=== PATIENT | male | born 1980 | race Caucasian/White ===

== ENCOUNTER 2020-06-06 23:17 | Emergency (ER) | payer SELFPAY ==
[~2020-06-06] VITALS: Ht 172.7 cm; Wt 72.5 kg
--- NOTE | 2020-06-07 00:09 | ED Upper Extremity ---
General Chief Complaint: Upper Extremity Stated Complaint: L HAND 3RD FINGER INJ History of Present Illness Date Seen by Provider: Jun 06, 2020 Time Seen by Provider: 23:48 Initial Comments Patient is a 40 [id number] who presents to the emergency department with the chief complaint of injury to the third digit of his left hand. He is mostly Citizen Of The [place]-speaking and has brought a friend who is here to help translate. He states he was washing a car when he fell on his finger about 2 hours ago. He placed it in a homemade splint 30 minutes after. He denies any pain or open wounds. Denies previous trauma or injury anywhere else. He does admit to having 3-4 beers before the incident. All other review of systems reviewed and negative except as stated above. Onset: this evening Severity: mild (denies pain.) Pain/Injury Location: left 3rd finger Method of Injury: fell (MICHAEL VALENTIN STUDENT) Allergies and Home Medications Patient Home Medication List Home Medication List Reviewed: Yes (CASSIDY SCHWARTZ MD) Review of Systems Constitutional: see HPI; No chills, No fever Respiratory: No cough Cardiovascular: No chest pain Gastrointestinal: No abdominal pain, No nausea, No vomiting Musculoskeletal: see HPI; No joint pain; joint swelling; No muscle pain (MICHAEL VALENTIN STUDENT) All Other Systems Reviewed Negative Unless Noted: Yes (MICHAEL VALENTIN STUDENT) Physical Exam Vital Signs Vital Signs - First Documented 06/06/20 23:32 Temp 36.8 Pulse 87 Resp 20 B/P (MAP) 120/87 (98) Pulse Ox 99 O2 Delivery Room Air (CASSIDY SCHWARTZ MD) Vital Signs Capillary Refill : (MICHAEL VALENTIN STUDENT) Height, Weight, BMI Height: '" Weight: lbs. oz. kg; BMI Method: General Appearance: WD/WN, no apparent distress Elbow/Forearm: normal inspection, non-tender, no evidence of injury Wrist: Yes normal inspection, Yes non-tender, Yes no evidence of injury Hand: non-tender, normal ROM, Left (3rd digit of left hand, slightly in flexed position, deformity and swelling present, no open wounds, no bony tenderness to palpation, sensation intact of distal finger, capillary refill < 2 seconds), deformity (deformity around 3rd PIP of left hand), swelling (swelling around PIP on 3rd digit of left hand) Neurologic/Tendon: normal sensation Neurologic/Psychiatric: alert, normal mood/affect, oriented x 3 Skin: normal color, warm/dry (MICHAEL VALENTIN MED STUDENT) Progress/Results/Core Measures Results/Orders My Orders Orders - CASSIDY SCHWARTZ MD Finger(S) (06/06/20 23:44) (CASSIDY SCHWARTZ MD) Vital Signs/I&O (CASSIDY SCHWARTZ MD) Progress Progress Note : Time: 00:19 Progress Note 40yo male with an angulated/oblique fracture to the proximal phalanx of the left third finger. distal neurovascularly intact. splinted in the ED. advised tylenol and ibuprofen. follow up with Ortho. (CASSIDY SCHWARTZ MD) Departure Impression Primary Impression: Finger fracture, left Qualified Codes: S62.613A - Displaced fracture of proximal phalanx of left middle finger, initial encounter for closed fracture Disposition: HOME, SELF-CARE Condition: Stable Departure-Patient Inst. Decision time for Depature: 00:17 (CASSIDY SCHWARTZ MD) Referrals: NO,LOCAL PHYSICIAN (PCP) Primary Care Physician ARSEN ALTAMIRANO MD Patient Instructions: Finger Fracture Add. Discharge Instructions: keep the splint on until you follow up with the Orthopedic doctor. Call Dr Altamirano's office tomorrow for a followup appointment. Come back to the Emergency Department if you have worse pain or swelling or any other emergent concerning symptoms. . I was present for the entirety of the medical students examination and assessment. I agree with her documentation and plan of care. I performed a history and physical examination. I performed the medical decision making regarding this patient. (CASSIDY SCHWARTZ MD) Copy Copies To 1: ARSEN ALTAMIRANO MD, KAREN MED STUDENT Jun 07, 2020 00:09 CASSIDY SCHWARTZ MD Jun 07, 2020 00:20
[2020-06-07 01:05] VITALS: BP 116/80
--- NOTE | 2020-06-07 07:53 | Diagnostic Imaging Report ---
INDICATION: Left hand pain after injury. COMPARISON: None available. TECHNIQUE: 3 views of the left long finger were obtained. FINDINGS: There is an acute, simple and oblique oriented fracture involving the 3rd proximal phalanx mid to distal diaphysis. The distal fracture fragment has radial displacement of approximately 3 mm. No significant volar or dorsal angulation of the distal fracture fragment. The fracture does not involve the MCP or PIP joints. No additional fractures appreciated. IMPRESSION: Acute and simple fracture of the long finger proximal phalanx diaphysis. Dictated by: Dictated on workstation # [id number]
== END 2020-06-07 00:30 | disposition home or self-care (01) ==
LOC: ER 23:21
DX: S62.613A Displaced fracture of proximal phalanx of left middle finger, initial encounter for closed fracture (principal); W18.30XA Fall on same level, unspecified, initial encounter
CPT/HCPCS: 29130; 73140